=== PATIENT | female | born 2000 | race African-American/Black ===

== ENCOUNTER 2023-09-15 20:05 | Emergency (ER) | payer BC, SELFPAY ==
[2023-09-15 21:31] VITALS: BP 116/69; PULSE 90; RESP 18; TEMP 36.9; O2SAT 97; BMI 21.2
--- NOTE | 2023-09-15 22:59 | ED.EAR ---
HPI - Ear Problem General Chief complaint: Ear Problems Stated complaint: Infected Piercing Time Seen by Provider: 09/15/23 22:30 Source: patient Mode of arrival: ambulatory Limitations: no limitations History of Present Illness HPI Narrative: 23 yo patient otherwise healthy here with c/o attempting to remove the piercing now with pain and swelling. tried to use benzoyl peroxide to help but thinks it made it worse Complaint: ear pain Location: left ear Duration: constant Severity: moderate Relieving factors: nothing Exacerbating factors: palpation Context: other (retained ear piercing) Discharge from ear: yes - purulent Treatment prior to arrival: other (tried benzoyl peroxide and tried to remove it) Related Data Previous Rx's Medication Instructions Recorded amoxicillin 875 mg-potassium 1 tab PO BID #14 tabs 09/15/23 clavulanate 125 mg tablet Allergies Allergy/AdvReac Type Severity Reaction Status Date / Time No Known Allergies Allergy Verified 09/15/23 21:30 Review of Systems Review of Systems: Constitutional : No Fever, No Chills, Cardiovascular : No Chest Pain, No SOB Respiratory : No Dyspnea Gastrointestinal : No abdominal pain Musculoskeletal : No Joint Swelling Skin : No rash, positive skin lesion and rash Neuro : No Weakness, No Numbness all other systems reviewed and are negative [facility] Past Medical History Attestation statement: The following information was validated with the patient. Medical History (Updated 09/15/23 @ 23:06 by Jaky Conde DO) Acne Social History Social History (Updated 09/15/23 @ 23:06 by Jaky Conde DO) Patient Tobacco Use Status: Never used Tobacco Physical Exam Vital Signs: Vital Signs: Last Vital Signs Temp 98.4 F 09/15/23 21:31 Pulse 90 09/15/23 21:31 Resp 18 09/15/23 21:31 BP 116/69 09/15/23 21:31 Pulse Ox 97 09/15/23 21:31 O2 Del Method Room Air 09/15/23 21:31 BMI result Body Mass Index 21.2 Appearance: Alert. Oriented X3. No acute distress. Eyes: Pupils equal, round and reactive to light. ENT: Pharynx normal. L ear at the pinna embedded stud mild swelling and erythema but pocket of purulence noted Neck: Normal inspection. CVS: Pulses normal. Respiratory: No respiratory distress. Abdomen: Soft and nontender. Skin: Skin warm and dry. Normal skin color. Extremities: No lower extremity edema. Neuro: Oriented X 3. No motor deficit. No sensory deficit. Procedures Procedure Narrative Procedure Narrative: betadine swab used forceps to push piercing through the skin and purulence was expressed able to then grasp piercing with finger and remove without issue tolerated well wrapped with sterile gauze and bharti wrap to prevent hematoma formation overnight. Medical Decision Making Medical Decision Making MDM Narrative: 23 yo female otherwise healthy here with c/o L pinna ear piercing embedded for a day with swelling and drainage at this time will remove and place on augmentin. Strict precautions to return. Differential Diagnosis Differential Diagnoses: The differential diagnosis associated with the presentation includes abscess, FB retained Admission/Observation Consideration of admission/observation: Escalation of care including admission/observation considered no systemic sypmtoms stable for DC Prescription Management I considered prescription management with: Antibiotic Discharge Plan Discharge Clinical Impression: History of retained foreign body fully removed Abscess of external ear Qualifiers: Laterality: left Qualified Code(s): H60.02 - Abscess of left external ear Patient Disposition: Home, Self-Care Instructions: Pierced Earlobe Infection (ED), Abscess (ED) Additional Instructions: remove dressing tomorrow at lunch time unless you have a fever or the pain is severe. afterwards okay to remove and shower but no pools or hot tubs for one week. return for worsening pain, swelling, fevers or any other concerns. finish all antibiotics Prescriptions: New amoxicillin-pot clavulanate 875-125 mg tablet 1 tab PO BID Qty: 14 0RF
[2023-09-15] MEDS: Amoxicillin/Potassium Clav 875 MG TABLET PO (23:15)
== END 2023-09-15 23:17 | disposition home or self-care (01) ==
LOC: HO.ED 23:09
PROVIDERS: Emergency Provider Emergency Medicine
DX: H60.02 Abscess of left external ear (principal); M79.5 Residual foreign body in soft tissue
CPT/HCPCS: 99281; 99283